=== PATIENT | female | born 2000 | race Caucasian/White ===

== ENCOUNTER 2021-10-19 18:16 | Emergency (ER) | payer OTHER, MEDICAID, SELFPAY ==
--- NOTE | ~2021-10-19 | XR_ITS ---
EXAMINATION: XR chest 2V EXAM DATE: 10/19/2021 19:04 INDICATION: Chest pain located anteriorly @ RT lower lung area today. TECHNIQUE: Frontal and lateral projections of the chest obtained and reviewed. There is no prior jordyn dy for comparison. FINDINGS: The lungs are clear. There are no pleural effusions. The cardiomediastinal silhouette is within normal limits. There is no pneumothorax suspected. The bones and soft tissues are unremarkab le. IMPRESSION: Normal chest x-ray exam. Reviewed, dictated and finalized at location [facility] IMPRESSION: Normal chest x-ray exam.
[2021-10-19 18:29] VITALS: BP 160/88; PULSE 78; RESP 20; TEMP 37; O2SAT 99
--- NOTE | 2021-10-19 18:43 | ED.ABDPAIN ---
HPI - Abdominal Pain General Chief Complaint: Unspecified Stated Complaint: CHEST PAIN Time Seen by Provider: 10/19/21 18:43 Source: patient Mode of arrival: ambulatory Limitations: no limitations Course Vital Signs Vital signs: Vital Signs Temperature 37.0 C 10/19/21 18:29 Pulse Rate 78 10/19/21 18:29 Respiratory Rate 20 10/19/21 18:29 Blood Pressure 160/88 H 10/19/21 18:29 Pulse Oximetry 99 10/19/21 18:29 Temperature 37.0 C 10/19/21 18:29 Pulse Rate 78 10/19/21 18:29 Respiratory Rate 20 10/19/21 18:29 Blood Pressure 160/88 H 10/19/21 18:29 Pulse Oximetry 99 10/19/21 18:29
--- NOTE | 2021-10-19 18:49 | ECG_ITS ---
Measurements Intervals Sebastian Rate: 66 P: 4 WI: 136 QRS: 17 QRSD: 100 T: 24 QT: 407 QTc: 429 Interpretive Statements SINUS RHYTHM NORMAL ECG Electronically Signed On 10-19-2021 20:11:40 RN LPN LVN by Faustino Ojeda D.O.
--- NOTE | 2021-10-19 18:51 | ED.CHESTPAIN ---
HPI - Chest Pain General Chief Complaint: Unspecified Stated Complaint: CHEST PAIN Time Seen by Provider: 10/19/21 18:43 Source: patient Mode of arrival: ambulatory Limitations: no limitations History of Present Illness HPI narrative: 20-year-old woman who was previously well comes in today complaining of substernal chest pain and pain to her right lower ribs that has been present most of the day today. She states is worse when she takes a deep breath. It was present on waking this morning. She has had no vomiting, shortness of breath, diarrhea, sweating, cough or cold symptoms, fever, dysuria, or abdominal pain. She denies prior similar symptoms. complaint: chest pain Onset (ago): hour(s) (12) Timing of current episode: episodic Prior episodes: No Onset: during rest Pain location: substernal Pain radiation: other (Right lower chest) Severity: moderate Relieving factors: nothing Exacerbating factors: inspiration Treatment prior to arrival: none Risk Factors Coronary artery disease risk factors: none Related Data On Oral Contraceptives: No Allergies Allergy/AdvReac Type Severity Reaction Status Date / Time No Known Allergies Allergy Verified 10/19/21 18:44 Review of Systems Review of Systems: All systems reviewed & are unremarkable except as noted in HPI and below Constitutional: Constitutional: Denies chills, Denies fatigue, Denies fever(s) and Denies weakness Eyes: Eyes: Denies change in vision and Denies photophobia ENT: Denies nasal congestion and Denies sore throat Cardiovascular: Cardiovascular: Reports chest pain and Denies radiating jaw, neck or arm pain Respiratory: Respiratory: Denies cough, Denies dyspnea and Denies wheezing Gastrointestinal: Gastrointestinal: Denies abdominal pain, Denies diarrhea, Denies nausea and Denies vomiting Genitourinary: Genitourinary: Denies nocturia and Denies dysuria Musculoskeletal: Musculoskeletal: Denies back pain, Denies arthralgias and Denies joint swelling Integumentary/Breasts: Skin/Breast: Denies pruritus, Denies erythema and Denies rash Neurologic: Denies vertigo, Denies dizziness, Denies syncope, Denies headache(s) and Denies weakness Allergic/Immunologic: Allergic/Immunologic: Denies lip swelling and Denies throat swelling [facility] Social History Social History (Updated 10/19/21 @ 18:55 by Jonathan Rollins MD) Smoking status: Never smoker Alcohol intake: never Substance use: never 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 [employer] Exam Const: General: healthy appearing, no acute distress and alert Orientation/consciousness: patient oriented x3 Limitations: no limitations HENMT: Head: normal to inspection Ears: external ears normal, TM's normal bilaterally and EAC's normal General nose exam: Normal nares present Face and sinus: normal facial exam Mouth: Yes moist mucous membranes Throat: posterior oropharynx normal Eyes: Conjunctivae: conjunctivae normal Pupils: Equal, round and reactive pupils present EOM: EOMs intact bilaterally Chest: Chest palpation & inspection: no tenderness Resp: Effort & Inspection: normal respiratory effort and not labored Auscultation: clear to auscultation bilaterally, no rales, no rhonchi and no wheezes Cardio: Rate: regular rate Rhythm: regular rhythm Heart sounds: no murmurs GI: GI Palp: Yes Soft to palpation, No Tenderness to palpation present (GI), No Guarding due to palpation present (GI) and No Palpable mass present Auscultation: normal bowel sounds Other: Negative Bundy sign. Skin: General skin exam: normal color, no jaundice and no pallor Rashes: no rashes Neuro: General: patient oriented x3, moves all extremities, no focal motor deficits and CN's II-XI intact bilaterally Speech: normal speech Gait exam (Neuro): Normal gait present Extrem: General: normal to inspection and no clubbing, cyanosis or edema Psych: Appearance: grossly normal and well kempt Mental
[2021-10-19] MEDS: MAG HYDROX/ALUMINUM HYD/SIMETH 30 ML, PHENobarb/HYOSCY/ATROPINE/SCOP 32.4 MG, LIDOCAINE... PO (19:30)
[2021-10-19 19:54] LABS: Basophils Absolute Auto 0.05 K/mm3 (0.00-0.10); Basophils Percent Auto 0.7 % (0.0-1.0); Eosinophils Absolute Auto 0.15 K/mm3 (0.02-0.50); Eosinophils Percent Auto 2.1 % (1.0-6.0); Hematocrit 36.9 % (35.0-49.0); Hemoglobin 11.4 g/dL (12.0-15.0); Immature Granulocyte Absolute 0.01 K/mm3 (0.00-0.00); Immature Granulocyte Percent A 0.1 % (0.0-0.0); Lymphocytes Absolute Auto 3.03 K/mm3 (1.10-4.50); Lymphocytes Percent Auto 43.3 % (18.0-42.0); Mean Corpuscular HGB Conc 30.9 g/dL (32.0-36.0); Mean Corpuscular Volume 84.1 fL (78.0-102.0); Monocytes Absolute Auto 0.53 K/mm3 (0.10-0.90); Monocytes Percent Auto 7.6 % (2.0-11.0); Neutrophils Absolute Auto 3.2 K/mm3 (1.7-7.2); Neutrophils Percent Auto 46.2 % (50.0-70.0); Platelet Count Result 371 K/mm3 (150-420); Red Blood Count 4.39 M/mm3 (4.20-5.40); Red Cell Distribution Width 13.7 % (11.6-14.4)
[2021-10-19 19:57] LABS: Add Urine Microscopic? YES; Appearance Urine Clear (Clear); Bilirubin Urine 1+ (Negative); Blood Urine 2+ (Negative); Color Urine Yellow (Yellow); Glucose Urine UA Negative (Negative); Ketones Urine Trace (Negative); Leukocyte Esterase Ur Negative LEU/UL (Negative); Nitrate Urine Negative (Negative); Protein Urine Negative (Negative); Specific Grav Ur >= 1.030 (1.010-1.020); Urobilinogen Urine 0.2 mg/dL (0.2-1.0); pH Urine 5.5 (5.0-8.0)
[2021-10-19 20:04] LABS: Bacteria Urine 1+ /hpf; Mucus Urine Moderate /lpf; RBC Urine 0-2 /hpf (0-2); Squamous Epithelial Cell Urine Many /hpf (Few); WBC Urine 0-3 /hpf (0-3)
[2021-10-19 20:05] LABS: Pregnancy On Board Control Positive; Urine Pregnancy Test Negative
[2021-10-19 20:13] LABS: Alanine Aminotransferase 16 U/L (14-59); Albumin Level 3.5 g/dL (3.4-5.0); Alkaline Phosphatase 96 U/L (50-130); Anion Gap 8 mmol/L (8-16); Aspartate Amino Transferase 12 U/L (15-37); Bilirubin,Total 0.2 mg/dL (0.00-1.00); Blood Urea Nitrogen 7 mg/dL (7-18); Calcium 9.1 mg/dL (8.5-10.1); Carbon Dioxide 29 mmol/L (21-32); Chloride 104 mmol/L (98-108); Estimated CRCL calculation 116 ml/min; Estimated Glomerular Filt Rate > 60; Glucose 88 mg/dL (70-99); Lipase 111 U/L (73-393); Osmolality Calculated 289 mOsm/kg (285-295); Potassium 3.7 mmol/L (3.5-5.1); Sodium 141 mmol/L (136-145); Total Protein 8.1 g/dL (6.4-8.2); Troponin I 6.2 ng/L (0.00-60.4)
[2021-10-19] MEDS: PANTOPRAZOLE 40 MG TABLET PO (20:49)
[2021-10-19 21:03] VITALS: BP 128/73; PULSE 62; RESP 16; O2SAT 100
== END 2021-10-19 21:02 | disposition home or self-care (01) ==
PROVIDERS: Emergency Provider Emergency Medicine
DX: R07.89 Other chest pain (principal)
CPT/HCPCS: 36415; 71046; 80053; 81001; 81025; 83690; 84484; 85025; 93005; 99283; 99284; A9270

== ENCOUNTER 2021-11-18 21:14 | Emergency (ER) | payer OTHER, MEDICAID, SELFPAY ==
--- NOTE | ~2021-11-18 | XR_ITS ---
EXAMINATION: XR chest 1V portable EXAM DATE: 11/18/2021 22:02 INDICATION: SOB with cough and weakness x 2 days. Possible COVID. TECHNIQUE: Portable AP frontal chest x-ray was obtained. Comparison is made to prior examination from 10/19/2020. FINDINGS: The lungs are clear. There are no pleural effusions. The cardiomediastinal silhouette is within normal limits. There is no pneumothorax suspected. The bones and soft tissues are unremarkab le. IMPRESSION: No acute cardiopulmonary findings. Reviewed, dictated and finalized at location A. [facility]
[2021-11-18 21:34] VITALS: BP 129/67; PULSE 106; RESP 20; TEMP 38; O2SAT 98
[2021-11-18] MEDS: ACETAMINOPHEN 325 MG TABLET 650 MG PO (22:16)
[2021-11-18 22:18] LABS: Basophils Absolute Auto 0.03 K/mm3 (0.00-0.10); Basophils Percent Auto 0.5 % (0.0-1.0); Eosinophils Absolute Auto 0.04 K/mm3 (0.02-0.50); Eosinophils Percent Auto 0.7 % (1.0-6.0); Immature Granulocyte Absolute 0.01 K/mm3 (0.00-0.00); Immature Granulocyte Percent A 0.2 % (0.0-0.0); Lymphocytes Absolute Auto 0.37 K/mm3 (1.10-4.50); Lymphocytes Percent Auto 6.5 % (18.0-42.0); Mean Corpuscular HGB Conc 31.4 g/dL (32.0-36.0); Mean Corpuscular Hemoglobin 26.6 pg (27.0-31.0); Mean Corpuscular Volume 84.7 fL (78.0-102.0); Mean Platelet Volume 9.2 fl (9.2-11.8); Monocytes Absolute Auto 0.52 K/mm3 (0.10-0.90); Monocytes Percent Auto 9.2 % (2.0-11.0); Neutrophils Absolute Auto 4.7 K/mm3 (1.7-7.2); Neutrophils Percent Auto 82.9 % (50.0-70.0); Platelet Count Result 231 K/mm3 (150-420); Red Blood Count 4.13 M/mm3 (4.20-5.40); Red Cell Distribution Width 13.7 % (11.6-14.4); White Blood Count 5.7 K/mm3 (4.8-10.8)
[2021-11-18] MEDS: IBUPROFEN 400 MG TABLET 800 MG PO (22:18)
[2021-11-18 22:37] LABS: Lactic Acid Reflex 1.6 mmol/L (0.4-2.0)
[2021-11-18 22:51] LABS: Influenza Control Valid (Valid)
[2021-11-18 22:52] LABS: SARS-CoV-2 Ag Positive (Negative)
[2021-11-18 22:56] LABS: SPREG INTERNAL CONTROL Positive; Serum Qual hCG Negative
[2021-11-18 23:07] LABS: Alanine Aminotransferase 12 U/L (14-59); Albumin Level 3.5 g/dL (3.4-5.0); Alkaline Phosphatase 93 U/L (50-130); Anion Gap 13 mmol/L (8-16); Aspartate Amino Transferase 15 U/L (15-37); Bilirubin,Total 0.2 mg/dL (0.00-1.00); Blood Urea Nitrogen 9 mg/dL (7-18); Calcium 8.6 mg/dL (8.5-10.1); Carbon Dioxide 25 mmol/L (21-32); Chloride 103 mmol/L (98-108); Estimated Glomerular Filt Rate > 60; Glucose 89 mg/dL (70-99); Osmolality Calculated 289 mOsm/kg (285-295); Potassium 3.6 mmol/L (3.5-5.1); Sodium 141 mmol/L (136-145); Total Protein 7.6 g/dL (6.4-8.2)
--- NOTE | 2021-11-18 23:11 | ED.GENADULT ---
HPI - General Adult General Chief complaint: Unspecified Stated complaint: potential covid Time Seen by Provider: 11/18/21 21:16 Source: patient and RN notes reviewed Mode of arrival: ambulatory Limitations: no limitations History of Present Illness complaint: mild dizziness, fatigue and nausea Onset (ago): day(s) (1) Severity: mild Severity scale (1-10): 3 Pain Consistency: other (pain-free) Relieving factors: none Exacerbating factors: none Associated symptoms: headaches Treatments prior to arrival: none Related Data Allergies Allergy/AdvReac Type Severity Reaction Status Date / Time No Known Allergies Allergy Verified 11/18/21 22:52 Review of Systems Review of Systems: All systems reviewed & are unremarkable except as noted in HPI and below Constitutional: Constitutional: Reports malaise PMFSH Past Medical History Medical History Gastroesophageal reflux disease Surgical History Surgical History No history of previous surgery Social History Social History Smoking status: Never smoker Alcohol intake: never Substance use: never 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 Exam Const: General: cooperative, healthy appearing and no acute distress Nutritional Appearance: obese Orientation/consciousness: patient oriented x3 Limitations: no limitations HENMT: Head: normal to inspection, normocephalic and atraumatic Ears: hearing grossly normal bilaterally, external ears normal and TM's normal bilaterally General nose exam: Normal external nose present and Normal nares present Face and sinus: normal facial exam Mouth: Yes Normal oral and palatal mucosa present, Yes lip normal, Yes tongue normal and Yes moist mucous membranes Throat: posterior oropharynx normal Eyes: General: appearance normal, both eyes and all related structures Eyelids: eyelids normal Conjunctivae: conjunctivae normal Sclera: sclerae normal Cornea: corneas normal Pupils: Equal, round and reactive pupils present and Pupils normal by confrontation EOM: EOMs intact bilaterally Neck: Neck: normal visual inspection, full ROM and no lymphadenopathy Chest: Chest palpation & inspection: normal inspection of the chest Resp: Effort & Inspection: normal respiratory effort Auscultation: clear to auscultation bilaterally Cardio: Jugular venous distension: no JVD Rate: regular rate Rhythm: regular rhythm GI: Inspection: normal to inspection GI Palp: No abdominal tenderness Auscultation: normal bowel sounds : General: Yes bladder normal to inspection and Yes bladder normal to palpation Back/Spine/Pelvis: Back: no CVA tenderness Thoracic/Lumbar Spine: thoracic and lumbar spine normal to inspection Skin: General skin exam: normal color and no rashes or lesions noted Neuro: General: patient oriented x3, gait normal, moves all extremities, no meningeal signs, no focal motor deficits and CN's II-XI intact bilaterally Cranial nerves: Yes CN's II-XII intact bilaterally, Yes Equal, round and reactive pupils present and Yes Bilaterally intact EOM present Cognition (Neuro): normal cognition Speech: normal speech Gait exam (Neuro): Normal gait present Motor exam (neuro): 5/5 motor strength present throughout Extrem: General: normal to inspection, full ROM, capillary refill normal, normal exam except as noted, no pedal edema and no calf tenderness Psych: Appearance: grossly normal and well kempt Mental Status: mental status grossly normal Affect: normal affect Attitude: cooperative Thought process: Normal thought process present Thought content: Yes Normal thought content present Course Course Emergency Course: No acute GI loss in the ED. normal ambulation. Reevaluation(s) Reevaluation #1: VIKASH. Date: 11/18/21 Time: 22:05 Vital
[2021-11-18 23:25] VITALS: BP 115/65; PULSE 105; RESP 20; TEMP 38.1; O2SAT 97
== END 2021-11-18 23:35 | disposition home or self-care (01) ==
PROVIDERS: Emergency Provider Emergency Medicine; PCP Nurse Practitioner Family
DX: U07.1 COVID-19 (principal); B34.9 Viral infection, unspecified
CPT/HCPCS: 71045; 80053; 83605; 84703; 85025; 87040; 87081; 87426; 87804; 87880; 99283; A9270; C9803

== ENCOUNTER 2022-12-16 23:03 | Emergency (ER) | payer OTHER, BC, SELFPAY ==
[2022-12-16 23:05] VITALS: BP 129/73; PULSE 88; RESP 18; TEMP 36.6; O2SAT 97
--- NOTE | 2022-12-16 23:08 | ED.DENTAL ---
HPI - Dental/Oral General Chief complaint: Dental/Oral Stated complaint: Tooth Ache Source: patient Mode of arrival: ambulatory Limitations: no limitations History of Present Illness HPI Narrative: this is a 22-year-old female that presents with right lower molar tenderness with some surrounding gum inflammation radiating to her right submandibular gland with no fever chills no shortness of breath no nausea or vomiting. Complaint: tooth pain Teeth map: 1. tender with surrounding gum inflammation Onset (ago): day(s) Duration: constant Severity: severe Severity scale (1-10): 10 Relieving factors: NSAIDs Exacerbating factors: chewing and cold Context: history of dental caries Related Data Allergies Allergy/AdvReac Type Severity Reaction Status Date / Time No Known Allergies Allergy Verified 11/18/21 22:52 Review of Systems Review of Systems: All systems reviewed & are unremarkable except as noted in HPI and below PMFSH Past Medical History Medical History Gastroesophageal reflux disease Surgical History Surgical History No history of previous surgery Social History Social History Smoking status: Never smoker Alcohol intake: never Substance use: never 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 Const: General: healthy appearing Nutritional Appearance: well nourished Orientation/consciousness: patient oriented x3 Limitations: no limitations HENMT: Head: normal to inspection Face/Nose/Sinus: Normal external nose present Face and sinus: normal facial exam Mouth: Yes Normal oral and palatal mucosa present Throat: posterior oropharynx normal Eyes: Conjunctivae: conjunctivae normal Pupils: Equal, round and reactive pupils present EOM: EOMs intact bilaterally Neck: Neck: normal visual inspection Chest: Chest palpation & inspection: normal inspection of the chest Resp: Effort & Inspection: normal respiratory effort Auscultation: clear to auscultation bilaterally Cardio: Rate: regular rate Rhythm: regular rhythm GI: Auscultation: normal bowel sounds : General: Yes bladder normal to palpation Urinary Catheter: Urinary Catheter: patent and draining Skin: General skin exam: normal color Rashes: no rashes Wounds: no wounds Neuro: General: patient oriented x3 Cranial nerves: Yes Nystagmus not present Speech: normal speech Extrem: General: normal to inspection Psych: Mental Status: mental status grossly normal Affect: normal affect Course Course Emergency Course: Patient received a dose of amoxicillin and IM Toradol symptoms mildly improved and will send prescriptions to her pharmacy. Advised patient to follow-up with her dentist. Vital Signs Vital signs: Vital Signs Temperature 36.6 C 12/16/22 23:05 Pulse Rate 88 12/16/22 23:05 Respiratory Rate 18 12/16/22 23:05 Blood Pressure 129/73 12/16/22 23:05 Pulse Oximetry 97 12/16/22 23:05 Oxygen Delivery Room Air 12/16/22 23:05 Temperature 36.6 C 12/16/22 23:05 Pulse Rate 88 12/16/22 23:05 Respiratory Rate 18 12/16/22 23:05 Blood Pressure 129/73 12/16/22 23:05 Pulse Oximetry 97 12/16/22 23:05 Oxygen Delivery Room Air 12/16/22 23:05 Critical Care Time Critical Care Time Critical Care Time: No Discharge Plan Discharge Clinical Impression: Toothache, Dental abscess Patient Disposition: Home, Self-Care Condition: Stable Instructions: Antibiotic Form, Dental Abscess (ED), Toothache (ED) Additional Instructions: Take medicine as prescribed and follow-up with dentist as soon as possible for further evaluation treatment. Prescriptions: New amoxicillin 500 mg capsule 500 mg PO TID Qty: 30 0RF tramadol 50 mg tablet 50 mg PO Q6H PRN (Reason: pain) Qty:
[2022-12-16] MEDS: AMOXICILLIN 500 MG CAPSULE PO (23:16)
[2022-12-16] MEDS: KETOROLAC (*BKC) 60 MG/2 ML VIAL IM (23:19)
[2022-12-16 23:29] VITALS: BP 135/85; PULSE 80; RESP 20; O2SAT 100
== END 2022-12-16 23:37 | disposition home or self-care (01) ==
LOC: CHSED 23:15
PROVIDERS: Emergency Provider Emergency Medicine
DX: K04.7 Periapical abscess without sinus (principal); K08.89 Other specified disorders of teeth and supporting structures
CPT/HCPCS: 96372; 99283; A9270; J1885

== ENCOUNTER 2023-03-17 18:54 | Emergency (ER) | payer OTHER, BC, SELFPAY ==
[2023-03-17 19:09] VITALS: BP 129/73; PULSE 99; RESP 18; TEMP 36.8; O2SAT 98
[2023-03-17 19:37] LABS: Basophils Absolute Auto 0.04 K/mm3 (0.00-0.10); Basophils Percent Auto 0.5 % (0.0-1.0); Eosinophils Absolute Auto 0.11 K/mm3 (0.02-0.50); Eosinophils Percent Auto 1.4 % (1.0-6.0); Hematocrit 34.5 % (35.0-49.0); Hemoglobin 11.1 g/dL (12.0-15.0); Immature Granulocyte Absolute 0.02 K/mm3 (0.00-0.00); Immature Granulocyte Percent A 0.3 % (0.0-0.0); Lymphocytes Absolute Auto 2.84 K/mm3 (1.10-4.50); Lymphocytes Percent Auto 36.4 % (18.0-42.0); Mean Corpuscular HGB Conc 32.2 g/dL (32.0-36.0); Mean Corpuscular Hemoglobin 27.8 pg (27.0-31.0); Mean Corpuscular Volume 86.5 fL (78.0-102.0); Mean Platelet Volume 9.4 fl (9.2-11.8); Neutrophils Absolute Auto 4.1 K/mm3 (1.7-7.2); Neutrophils Percent Auto 52.4 % (50.0-70.0); Platelet Count Result 286 K/mm3 (150-420); Red Blood Count 3.99 M/mm3 (4.20-5.40); Red Cell Distribution Width 12.9 % (11.6-14.4); White Blood Count 7.8 K/mm3 (4.8-10.8)
[2023-03-17 19:38] LABS: Appearance Urine Clear (Clear); Bilirubin Urine Negative (Negative); Blood Urine Negative (Negative); Color Urine Light Yellow (Yellow); Glucose Urine UA Negative (Negative); Ketones Urine Negative (Negative); Leukocyte Esterase Ur Negative LEU/UL (Negative); Nitrate Urine Negative (Negative); Protein Urine Negative (Negative)
[2023-03-17 19:39] LABS: Add Urine Microscopic? NO
[2023-03-17 19:58] LABS: Alanine Aminotransferase 13 U/L (14-59); Albumin Level 3.4 g/dL (3.4-5.0); Alkaline Phosphatase 87 U/L (46-116); Anion Gap 9 mmol/L (8-16); Aspartate Amino Transferase 12 U/L (15-37); Bilirubin,Total 0.2 mg/dL (0.00-1.00); Blood Urea Nitrogen 6 mg/dL (7-18); Calcium 8.6 mg/dL (8.5-10.1); Carbon Dioxide 29 mmol/L (21-32); Chloride 104 mmol/L (98-108); Estimated CRCL calculation 128 ml/min; Estimated Glomerular Filt Rate > 60; Glucose 86 mg/dL (70-99); Osmolality Calculated 290 mOsm/kg (285-295); Potassium 3.5 mmol/L (3.5-5.1); Sodium 142 mmol/L (136-145); Total Protein 7.9 g/dL (6.4-8.2)
[2023-03-17 20:02] LABS: Beta HCG Quantitative < 1.00 mIU/mL (0-6)
--- NOTE | 2023-03-17 20:04 | ED.GENADULT ---
HPI - General Adult General Chief complaint: Unspecified Stated complaint: check Time Seen by Provider: 03/17/23 18:55 Source: patient and family Mode of arrival: ambulatory Limitations: no limitations History of Present Illness HPI narrative: patient here today has not had a menstrual period for the last month or so and she is concerned, having some lower abdominal discomfort currently is resolved with no dysuria no fever chills no flank pain no shortness of breath no nausea vomiting no diarrhea or constipation. 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[employer] Exam Const: General: cooperative, healthy appearing and comfortable HENMT: Head: normal to inspection Ears: hearing grossly normal bilaterally Face/Nose/Sinus: Normal external nose present Face and sinus: normal facial exam Mouth: Yes Normal oral and palatal mucosa present and Yes lip normal Throat: posterior oropharynx normal Eyes: General: appearance normal, both eyes and all related structures Visual Hughes: normal visual hughes by confrontation Alignment and Position: alignment normal Neck: Neck: normal visual inspection, full ROM, no lymphadenopathy and no meningeal signs Chest: Chest palpation & inspection: normal inspection of the chest Resp: Effort & Inspection: normal respiratory effort and able to speak in complete sentences Cardio: Jugular venous distension: no JVD Palpation: normal PMI Rate: regular rate Rhythm: regular rhythm GI: Inspection: normal to inspection : General: Yes bimanual renal exam normal bilaterally Urinary Catheter: Urinary Catheter: patent and draining Back/Spine/Pelvis: Back: no CVA tenderness Skin: General skin exam: normal color and no rashes or lesions noted Neuro: General: oriented to person, oriented to place, oriented to time and patient oriented x3 Extrem: General: normal to inspection, full ROM and capillary refill normal Psych: Appearance: grossly normal Mental Status: mental status grossly normal Course Course Emergency Course: Labs reviewed with patient and UA was negative advised to follow up with primary for further evaluation and treatment. Possibly a referral to medical records tech to be evaluated for absence of her menstrual cycle. Vital Signs Vital signs: Vital Signs Temperature 36.8 C 03/17/23 19:09 Pulse Rate 99 03/17/23 19:09 Respiratory Rate 18 03/17/23 19:09 Blood Pressure 129/73 03/17/23 19:09 Pulse Oximetry 98 03/17/23 19:09 Temperature 36.8 C 03/17/23 19:09 Pulse Rate 99 03/17/23 19:09 Respiratory Rate 18 03/17/23 19:09 Blood Pressure 129/73 03/17/23 19:09 Pulse Oximetry 98 03/17/23 19:09 Medical Decision Making Vital Signs Vital Signs: Vital Signs Temperature 36.8 C 03/17/23 19:09 Pulse Rate 99 03/17/23 19:09 Respiratory Rate 18 03/17/23 19:09 Blood Pressure 129/73 03/17/23 19:09 Pulse Oximetry 98 03/17/23 19:09 Temperature 36.8 C 03/17/23 19:09 Pulse Rate 99 03/17/23 19:09 Respiratory Rate 18 03/17/23 19:09 Blood Pressure 129/73 03/17/23 19:09 Pulse Oximetry 98 03/17/23 19:09 Lab Data 03/17/23 19:34 03/17/23 19:34 Labs: Lab Results 03/17/23
[2023-03-17 20:17] VITALS: BP 124/68; PULSE 68; RESP 18; TEMP 36.8; O2SAT 98
== END 2023-03-17 20:19 | disposition home or self-care (01) ==
PROVIDERS: Emergency Provider Emergency Medicine
DX: N92.6 Irregular menstruation, unspecified (principal)
CPT/HCPCS: 36415; 80053; 81003; 84702; 85025; 99283

== ENCOUNTER 2023-10-11 17:22 | Emergency (ER) | payer BC, SELFPAY ==
[2023-10-11 17:23] VITALS: BP 116/72; PULSE 80; RESP 18; TEMP 36.8; O2SAT 99
--- NOTE | 2023-10-11 18:16 | ED.GENADULT ---
HPI - General Adult General Chief complaint: GI Bleed Stated complaint: anal bleeding Time Seen by Provider: 10/11/23 17:30 History of Present Illness HPI narrative: 22yo woman presents with two days of moderate to severe pain around the anus. Has some small red bumps there. Slight blood when wiping on the paper. No fever or chills. Has never had this before. Related Data Allergies Allergy/AdvReac Type Severity Reaction Status Date / Time No Known Allergies Allergy Verified 03/17/23 19:06 Review of Systems Review of Systems: All systems reviewed & are unremarkable except as noted in HPI and below Constitutional: Constitutional: Denies fever(s) ENT: Denies dysphagia Cardiovascular: Cardiovascular: Denies chest pain Respiratory: Respiratory: Denies dyspnea Gastrointestinal: Gastrointestinal: Denies abdominal pain PMFSH Past Medical History Medical History Gastroesophageal reflux disease Surgical History Surgical History No history of previous surgery Social History Social History Smoking status: Never smoker Alcohol intake: never Substance use: never 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 No mass. Skin: General skin exam: normal color, no jaundice and no pallor Course Vital Signs Vital signs: Vital Signs Temperature 36.8 C 10/11/23 17:23 Pulse Rate 80 10/11/23 17:23 Respiratory Rate 18 10/11/23 17:23 Blood Pressure 116/72 10/11/23 17:23 Pulse Oximetry 99 10/11/23 17:23 Oxygen Delivery Room Air 10/11/23 17:23 Temperature 36.8 C 10/11/23 17:23 Pulse Rate 80 11/28/23 17:23 Respiratory Rate 18 10/11/23 17:23 Blood Pressure 116/72 10/11/23 17:23 Pulse Oximetry 99 10/11/23 17:23 Oxygen Delivery Room Air 10/11/23 17:26 Medical Decision Making MDM Narrative Medical decision making narrative: perianal papular v vesicular rash DDx herpes simplex primary outbreak, else folliculitis. Start valacyclovir. Refer to Numerical Control Machine Tool Operator for tzanck smear. Vital Signs Vital Signs: Vital Signs Temperature 36.8 C 10/11/23 17:23 Pulse Rate 80 10/11/23 17:23 Respiratory Rate 18 10/11/23 17:23 Blood Pressure 116/72 10/11/23 17:23 Pulse Oximetry 99 10/11/23 17:23 Oxygen Delivery Room Air 10/11/23 17:23 Temperature 36.8 C 10/11/23 17:23 Pulse Rate 80 10/11/23 17:23 Respiratory Rate 18 10/11/23 17:23 Blood Pressure 116/72 10/11/23 17:23 Pulse Oximetry 99 10/11/23 17:23 Oxygen Delivery Room Air 10/11/23 17:26 Discharge Plan Discharge Clinical Impression: Localized papular rash Patient Disposition: Home, Self-Care Condition: Improved Instructions: Antibiotic Form Additional Instructions: Your rash could be a bacterial infection of the hair follicles, but it could also be Herpes Simplex virus. To make the diagnosis, follow-up with a Transportation Inspector, who can perform specialized testing to confirm or rule out Herpes and other potentially sexually transmitted infections. In the meantime take the prescribed antivirals and antibiotics to cover the possibility of sexually transmitted infection, including Herpes. Take the nausea medication 30 minutes before taking the other medications. For pain, apply the prescribed topical cream and take Ibuprofen 800 mg every 6 hours with food as needed.
[2023-10-11] MEDS: valACYclovir HCL 500 MG TABLET 1000 MG PO (18:26)
[2023-10-11] MEDS: ONDANSETRON HCL ODT 4 MG TABLET 8 MG PO (18:26)
[2023-10-11] MEDS: DOXYCYCLINE HYCLATE 100 MG TABLET PO (18:27)
[2023-10-11] MEDS: CIPROFLOXACIN 500 MG TAB PO (18:27)
[2023-10-11 18:31] VITALS: BP 112/77; PULSE 80; RESP 18; O2SAT 99
== END 2023-10-11 18:39 | disposition home or self-care (01) ==
PROVIDERS: Emergency Provider Emergency Medicine
DX: R23.8 Other skin changes (principal)
CPT/HCPCS: 99283; A9270

== ENCOUNTER 2023-10-25 18:52 | Emergency (ER) | payer SELFPAY ==
[2023-10-25 18:52] VITALS: BP 120/71; PULSE 88; RESP 18; TEMP 37.9; O2SAT 98
[2023-10-25] MEDS: IBUPROFEN 400 MG TABLET 800 MG PO (19:51)
[2023-10-25] MEDS: ACETAMINOPHEN 500 MG TABLET 1000 MG PO (19:52)
[2023-10-25 20:04] LABS: Pregnancy On Board Control Positive; Urine Pregnancy Test Negative
--- NOTE | 2023-10-25 20:05 | ED.GENADULT ---
HPI - General Adult General Chief complaint: Upper Respiratory Infection Stated complaint: sore throat Time Seen by Provider: 10/25/23 19:20 History of Present Illness HPI narrative: This 22-year-old female presenting ED with chief complaint of sore throat. Patient has sore throat for last 2 days fevers chills body aches headaches and cough/ congestion. Patient has been taking cold medicine. She denies nausea vomiting diarrhea, chest pain difficulty breathing or abdominal pain, urinary symptoms. Patient needs work note. 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 Head: Mild erythema of the posterior oropharynx exudates EYES: EOMI, NOSE: Atraumatic NECK: Trachea midline RESPIRATORY: No increased rate of breathing, CTAB CARDIOVASCULAR: RRR, no peripheral edema ABDOMINAL: Non-distended, soft nontender no guarding rebound no CVA tenderness MUSCULOSKELETAl: No obvious deformities NEURO: Alert. Moving 4/4 extremities SKIN:: Warm, dry. Normal color PSYCHIATRIC: Normal affect Course Vital Signs Vital signs: Vital Signs Temperature 100.2 F H 10/25/23 18:52 Pulse Rate 88 10/25/23 18:52 Respiratory Rate 18 10/25/23 18:52 Blood Pressure 120/71 10/25/23 18:52 Pulse Oximetry 98 10/25/23 18:52 Oxygen Delivery Room Air 10/25/23 18:52 Temperature 100.2 F H 10/25/23 18:52 Pulse Rate 88 10/25/23 18:52 Respiratory Rate 18 10/25/23 18:52 Blood Pressure 120/71 10/25/23 18:52 Pulse Oximetry 98 10/25/23 18:52 Oxygen Delivery Room Air 10/25/23 19:20 Medical Decision Making MDM Narrative Medical decision making narrative: -Course:22-year-old presenting with sore throat flu-like symptoms x2 days. patient is positive for COVID. Strep negative. Patient be discharged with supportive care and work note. Return precautions given -DDX includes but is not limited to: Strep throat, viral syndrome -Social determinants of health: works at [employer] in lives with her ex-boyfriend Blair -Hx from independent Sources: Blair @ bedside -Independent interpretation of studies: COVID positive. Flu RSV and strep negative. -Interventions: Motrin/tylenol -Shared decision making / Disposition: discharged Vital Signs Vital Signs: Vital Signs Temperature 100.2 F H 10/25/23 18:52 Pulse Rate 88 10/25/23 18:52 Respiratory Rate 18 10/25/23 18:52 Blood Pressure 120/71 10/25/23 18:52 Pulse Oximetry 98 10/25/23 18:52 Oxygen Delivery Room Air 10/25/23 18:52 Temperature 100.2 F H 10/25/23 18:52 Pulse Rate 88 10/25/23 18:52 Respiratory Rate 18 10/25/23 18:52 Blood Pressure 120/71 10/25/23 18:52 Pulse Oximetry 98 10/25/23 18:52 Oxygen Delivery Room Air 10/25/23 19:20 Lab Data Labs: Lab Results 10/25/23 10/25/23 Range/Units 19:42 20:04 Urine Test Negative Influenza A (RT-PCR) Negative (Negative) Influenza B (RT-PCR) Negative (Negative) RSV (RT-PCR) Negative (Negative) SARS-CoV-2 RNA (RT-PCR) Positive A (Negative) Group A Strep (PCR) Not detected (Negative) Discharge Plan Discharge Clinical Impression: COVID-19 Patient Disposition: Home, Self-Care Condition: Stable Instructions: Antibiotic Form, COVID-19 (Coronavirus Disease 2019) (ED) Additional Instr
[2023-10-25 20:14] LABS: Strep Group A RT-PCR NOT DETECTED (Negative)
[2023-10-25 20:22] LABS: SARS-CoV-2 RNA PCR Positive (Negative)
[2023-10-25 20:30] VITALS: TEMP 37.2
[2023-10-25 20:32] LABS: Influenza A QL RT-PCR Negative (Negative); Influenza B QL RT-PCR Negative (Negative); RSV RNA, RT-PCR Negative (Negative)
[2023-10-25 21:00] VITALS: TEMP 37.2
== END 2023-10-25 21:00 | disposition home or self-care (01) ==
PROVIDERS: Emergency Provider Emergency Medicine
DX: U07.1 COVID-19 (principal)
CPT/HCPCS: 81025; 87637; 87651; 99283; A9270

== ENCOUNTER 2024-01-16 16:35 | Emergency (ER) | payer SELFPAY ==
[2024-01-16 16:35] VITALS: BP 123/81; PULSE 88; RESP 16; TEMP 37.3; O2SAT 100
--- NOTE | 2024-01-16 16:45 | ED.FEMALEGU ---
HPI - Female Genitourinary General Chief complaint: Urogenital-Female Stated complaint: uti Time Seen by Provider: 01/16/24 16:45 Source: patient Mode of arrival: ambulatory Limitations: no limitations History of Present Illness HPI Narrative: 23 years old white female presents to the ED with urinary symptoms including frequency, burning sensation and urgency started 5 days ago. She denies any fever or chills or nausea or vomiting. Patient is healthy otherwise does not take any medicine at home. Associated with slight suprapubic discomfort. 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 Exam Narrative: General appearance: Well-developed, well-nourished Skin: Normal color Abdomen: Soft, nontender, no organomegaly, quiet bowel sounds Musculoskeletal: Normal range of motion, nontender back Neurologic: Alert and oriented ?3, Course Vital Signs Vital signs: Vital Signs Temperature 37.3 C 01/16/24 16:35 Pulse Rate 88 01/16/24 16:35 Respiratory Rate 16 01/16/24 16:35 Blood Pressure 123/81 01/16/24 16:35 Pulse Oximetry 100 01/16/24 16:35 Oxygen Delivery Room Air 01/16/24 16:35 Temperature 37.3 C 01/16/24 16:35 Pulse Rate 88 01/16/24 16:35 Respiratory Rate 16 01/16/24 16:35 Blood Pressure 123/81 01/16/24 16:35 Pulse Oximetry 100 01/16/24 16:35 Oxygen Delivery Room Air 01/16/24 16:35 MDM - Female Genitourinary MDM Narrative Medical decision making narrative: Urinalysis showed no acute infection Patient denies any vaginal bleeding discharge or any rash, her boyfriend was at the bedside who denied any genital symptoms. I plan to treat patient as urinary tract infection , waiting for urine culture, and if there is no improvement in 3-5 days to follow-up with OBGYN for pelvic examination. Patient declines any pelvic examination today. Lab Data Labs: Lab Results 01/16/24 01/16/24 Range/Units 16:38 16:39 Urine Color Yellow (Yellow) Urine Appearance Clear (Clear) Urine pH 6.0 (5.0-8.0) Ur Specific [place] >= 1.030 H (1.010-1.020) Urine Protein Trace H (Negative) Urine Glucose (UA) Negative (Negative) Urine Ketones Negative (Negative) Ur Blood (Man) Negative (Negative) Urine Nitrate Negative (Negative) Urine Bilirubin Negative (Negative) Urine Urobilinogen 0.2 (0.2-1.0) mg/dL Leukocyte Esterase Rfl Negative (Negative) NAZIA/UL Urine RBC None seen (0-2) /hpf Urine WBC None seen (0-3) /hpf Ur Squamous Epith Cells Few (Few) /hpf Urine Bacteria Trace (None) /hpf Urine Mucus Few H /lpf Urine Test Negative Urine Characteristics Clear Critical Care Time Critical Care Time Critical Care Time: No Discharge Plan Discharge Clinical Impression: Dysuria Patient Disposition: Home, Self-Care Cond
[2024-01-16 16:54] LABS: Appearance Urine Clear (Clear); Bilirubin Urine Negative (Negative); Blood Urine Negative (Negative); Color Urine Yellow (Yellow); Glucose Urine UA Negative (Negative); Ketones Urine Negative (Negative); Leukocyte Esterase Ur Negative LEU/UL (Negative); Nitrate Urine Negative (Negative); Protein Urine Trace (Negative); Specific Grav Ur >= 1.030 (1.010-1.020); Urobilinogen Urine 0.2 mg/dL (0.2-1.0)
[2024-01-16 16:56] LABS: Pregnancy On Board Control Positive; Urine Pregnancy Test Negative
[2024-01-16 17:00] LABS: Add Urine Microscopic? YES; Bacteria Urine Trace /hpf; Mucus Urine Few /lpf; RBC Urine None seen /hpf (0-2); Squamous Epithelial Cell Urine Few /hpf (Few); WBC Urine None seen /hpf (0-3)
== END 2024-01-16 17:20 | disposition home or self-care (01) ==
LOC: CHSED 17:03
PROVIDERS: Emergency Provider Emergency Medicine
DX: R30.0 Dysuria (principal)
CPT/HCPCS: 81001; 81025; 99283